=== PATIENT | female | born 1940 | race Caucasian/White ===

== ENCOUNTER → 2017-01-03 | Outpatient (CLI) | payer OTHER ==
[~2017-01-03] MED LIST: ASPI81TA82 PO; BILB1CAP2 PO; CALC-131 PO; CHON150C PO; CO Q100C9 PO; COLL500C PO; ELDES PO; FLAX1200 PO; LECIGRA PO; LUTE6TAB PO; OMEG100010 PO; TAB-TAB PO; TRAM50 PO; VITA100017 PO; VITA400C70 PO; VITA5000 PO; VITA500S3 PO
== END ==
LOC: HREF 14:28
PROVIDERS: ATTEND Psychiatry & Neurology Neurology
DX: G60.9 Hereditary and idiopathic neuropathy, unspecified (principal)